=== PATIENT | male | born 1955 | race Caucasian/White ===

== ENCOUNTER 2023-07-08 11:39 | Emergency (ER) | payer MEDICARE, SELFPAY ==
--- NOTE | ~2023-07-08 | XR_ITS ---
EXAMINATION: XR wrist LT min 3V DATE: 07/08/2023 11:58 INDICATION: Left wrist pain, initial encounter TECHNIQUE: Posteroanterior, ulnar deviation, oblique, and lateral views of the left wrist were obtain ed. COMPARISON: None available FINDINGS: There is a small heterotopic ossification projecting dorsal to the carpals on the lateral v iew. There is mild sclerosis at the waist of the scaphoid. Mild osteoarthritis is noted at the trisca phe joint. There is soft tissue swelling of the wrist. IMPRESSION: 1. Small heterotopic ossification dorsal to the carpals on the lateral view which could reflect fract ure. 2. Sclerosis of the scaphoid neck which could reflect nondisplaced fracture. Consider further evaluat ion with CT. Reviewed, dictated and finalized at location B. IMPRESSION: 1. Small heterotopic ossification dorsal to the carpals on the lateral view whi ch could reflect fracture. 2. Sclerosis of the scaphoid neck which could reflect nondisplaced fracture. Co nsider further evaluation with CT.
--- NOTE | ~2023-07-08 | CT_ITS ---
EXAMINATION: CT wrist LT wo con DATE: 07/08/2023 14:13 INDICATION: Left wrist pain post fall TECHNIQUE: High resolution computed tomography (CT) of the left wrist was performed without intraveno us contrast. Additional sagittal and coronal reconstructions were performed. Automated exposure contr ol and iterative reconstruction technique were employed. The dose-length product was 275.22 mGy-cm. COMPARISON: Left wrist radiographs dated 07/08/2023 FINDINGS: Small minimally displaced fracture along the dorsal margin of the triquetrum. No other fractures iden tified. Polyarticular osteoarthritis, moderate severity at the distal radioulnar, triscaphe, pisotriq uetral and second and fifth carpal metacarpal joints and mild osteoarthritis at the wrist, midcarpal, first metacarpophalangeal and remaining carpal metacarpal joints. Soft tissue swelling over the dors um of the carpus. IMPRESSION: 1. Small minimally displaced fracture of the dorsal aspect of the triquetrum. 2. 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 Reviewed, dictated and finalized at location A.
[2023-07-08 11:41] VITALS: BP 200/100; PULSE 60; RESP 14; TEMP 36.5; O2SAT 99
--- NOTE | 2023-07-08 14:39 | ED.GENADULT ---
HPI - General Adult General Chief complaint: Extremity Injury, Upper <Yasmine Aguila February, - Last Filed: 07/08/23 15:47> Stated complaint: Left wrist injury <Yasmine Aguila February, - Last Filed: 07/08/23 15:47> Time Seen by Provider: 07/08/23 12:52 <Yasmine Aguila February,N - Last Filed: 07/08/23 15:47> History of Present Illness HPI narrative: Garland Contreras is a 67 y/o male who presents today after tripping over a hose yesterday at 1600 falling on to his left hand and left knee, he denies hitting his head/ no LOC/ denies any injuries outside of continued pain to his left wrist Patient denies numbness/tingling/ ROM intact. <Yasmine Aguila February, - Last Filed: 07/08/23 15:47> Related Data Allergies/adverse reactions: Allergies Allergy/AdvReac Type Severity Reaction Status Date / Time No Known Allergies Allergy Verified 07/08/23 11:46 <Yasmine Aguila February, - Last Filed: 07/08/23 15:47> Review of Systems Review of Systems: CONSTITUTIONAL: Denies fever, chills, or sweats. EYES: Denies visual changes, redness, or discharge. ENT: Denies rhinorrhea, congestion, sore throat, or otalgia. CARDIOVASCULAR: Denies chest pain, palpitations, or edema. RESPIRATORY: Denies cough or dyspnea. GASTROINTESTINAL: Denies abdominal pain, nausea, vomiting, or diarrhea. GENITOURINARY: Denies dysuria or hematuria. SKIN: Denies rash or itching. MUSCULOSKELETAL: pain to the left wrist and hand after ground level fall yesterday NEUROLOGIC: Denies headache, numbness, dizziness, or weakness. PSYCHIATRIC: Denies anxiety or depression. <Yasmine Aguila February, Last Filed: 07/08/23 15:47> Exam Narrative: GENERAL: Well-appearing, well-nourished, and in no acute distress. HEAD: Normocephalic, atraumatic. EYES: PERRLA and EOMI. ENT: Nares clear, no rhinorrhea or epistaxis. Mucous membranes moist. Oropharynx without tonsillar hypertrophy exudate or other lesions. NECK: Supple. No adenopathy or masses. No carotid bruits or JVD CHEST: Clear to auscultation. No respiratory distress. No wheezes rales or rhonchi HEART: Regular rate and rhythm. No murmur heard. Normal peripheral pulses. ABDOMEN: Soft, nontender, nondistended, normal active bowel sounds. EXTREMITIES: Normal range of motion. Pain is noted with palpation/normal pulses/ normal cap refill. SKIN: Warm, dry, no rash. NEURO: No focal deficits. Alert and oriented x3. PSYCH: Normal mood and affect. <Yasmine Barahona, BODY TEAM MEMBER - Last Filed: 07/08/23 15:47> Course PANTOGRAPH I ENGRAVER/PA Physician Supervision For this patient encounter, I reviewed the PANTOGRAPH I ENGRAVER or PA documentation, treatment plan, and medical decision making; and I had [id number] time with this patient. <Dax Landa MD - Last Filed: 07/08/23 18:53> Vital Signs Vital signs: Vital Signs Temperature 97.7 F 07/08/23 11:41 Pulse Rate 60 07/08/23 11:41 Respiratory Rate 14 07/08/23 11:41 Blood Pressure 200/100 H 07/08/23 11:41 Pulse Oximetry 99 07/08/23 11:41 Oxygen Delivery Room Air 07/08/23 11:41 Temperature 97.7 F 07/08/23 11:41 Pulse Rate 55 L 07/08/23 15:43 Respiratory Rate 14 07/08/23 15:43 Blood Pressure 177/95 H 07/08/23 15:43 Pulse Oximetry 96 07/08/23 15:43 Oxygen Delivery Room Air 07/08/23 11:41 <Yasmine Barahona, BODY TEAM MEMBER - Last Filed: 07/08/23 15:47> Vital Signs Temperature 97.7 F 07/08/23 11:41 Pulse Rate 60 07/08/23 11:41 Respiratory Rate 14 07/08/23 11:41 Blood Pressure 200/100 H 07/08/23 11:41 Pulse Oximetry 99 07/08/23 11:41 Oxygen Delivery Room Air 07/08/23 11:41 Temperature 97.7 F 07/08/23 11:41 Pulse Rate 55 L 07/08/23 15:43 Respiratory Rate 14 07/08/23 15:43 Blood Pressure 177/95 H 07/08/23 15:43 Pulse Oximetry 96 07/08/23 15:43 Oxygen Delivery Room Air 07/08/23 11:41 <Dax Landa MD - Last Filed: 07/08/23 18:53> Medical Decision Making MDM Narrative Medical decision making narrative: On exam pt is n
[2023-07-08 15:43] VITALS: BP 177/95; PULSE 55; RESP 14; O2SAT 96
== END 2023-07-08 15:52 | disposition home or self-care (01) ==
PROVIDERS: Emergency Provider Nurse Practitioner Family
DX: S62.112A Displaced fracture of triquetrum [cuneiform] bone, left wrist, initial encounter for closed fracture (principal); M19.032 Primary osteoarthritis, left wrist; W18.09XA Striking against other object with subsequent fall, initial encounter
CPT/HCPCS: 29125; 73110; 73200; 99284